=== PATIENT | female | born 1990 | race Two or more races ===

== ENCOUNTER 2016-06-03 22:47 | Emergency (ER) | payer OTHER ==
[2016-06-03 22:47] VITALS: BMI 29.0
[2016-06-03 23:03] VITALS: RESP 18; TEMP 98.7; O2SAT 99
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
[2016-06-04 00:21] VITALS: BP 115/69; PULSE 95
--- NOTE | 2016-06-04 13:13 | RAD ---
PROCEDURE: Left Foot Radiographs. HISTORY: Pain COMPARISON: None. FINDINGS: BONES: Normal. No fracture. Bone alignment and mineralization are normal. There is no acute fracture or bone destruction. JOINTS: Normal. SOFT TISSUES: Normal. OTHER FINDINGS: None. IMPRESSION: No acute fracture, dislocation or bone destruction.
== END 2016-06-04 00:22 | disposition home or self-care (01) ==
LOC: C.ER 22:47
DX: S93.602A Unspecified sprain of left foot, initial encounter (principal); S09.90XA Unspecified injury of head, initial encounter; Y08.89XA Assault by other specified means, initial encounter